=== PATIENT | male | born 1940 | race Caucasian/White ===

== ENCOUNTER → 2016-12-15 | Outpatient (CLI) | payer MEDICARE ==
[~2016-12-15] MED LIST: AMLO5TAB96 PO; ASPI81 PO; ATEN1TAB75 PO; COZA100T PO; DOXA1TAB3 PO; FISH1000 PO; HYDR-2768 PO; HYDR25TA35 PO; LISI40TA PO; MENT4GEL TOP; MILKSUS5 PO; NORC7.5T PO; NOVOLOGMXP SC; NOVORP2 SQ; TAB-TAB PO
--- NOTE | 2017-01-11 11:11 | RSPPFT ---
DATE OF PROCEDURE: 12/15/16 COMMENTS: VOLUMES DYNAMIC: FVC and FEV1 moderately reduced. STATIC: TLC moderately reduced; FRC mildly reduced; RV normal. FLOWS: FEV1% and FEF 25-75 normal. DIFFUSION; Moderately reduced. FLOW VOLUME LOOP: Restrictive configuration. IMPRESSION: Mild to moderate restrictive ventilatory defect with reduction in diffusion. Clinical correlation is required as to the etiology. There is no improvement post-bronchodilator.
== END ==
LOC: HRSP 12:19
PROVIDERS: ATTEND Internal Medicine Cardiovascular Disease
DX: R06.02 Shortness of breath (principal)
CPT/HCPCS: 94060; 94726; 94729